=== PATIENT | male | born 1970 | race Caucasian/White ===

== ENCOUNTER 2019-08-06 00:07 | Emergency (ER) | payer BC ==
[~2019-08-06] VITALS: Ht 185.4 cm; Wt 145.2 kg
[~2019-08-06 00:07] MED LIST: NOHOMEMEDICATIONS
[2019-08-06] MEDS ORDERED: FLEXERIL PO ×2 (00:16→02:02)
[2019-08-06] MEDS ORDERED: HYDROCODON-ACE1 EAC8 PO (02:02)
[2019-08-06 02:12] VITALS: BP 168/89
== END 2019-08-06 02:12 | disposition home or self-care (01) ==
LOC: M.ERS 00:07
DX: M54.12 Radiculopathy, cervical region (principal)